=== PATIENT | female | born 1970 | race Caucasian/White ===

== ENCOUNTER 2025-01-19 18:14 | Emergency (ER) | payer MEDICAID ==
[~2025-01-19] VITALS: Ht 165.1 cm; Wt 100.0 kg
[2025-01-19 18:34] VITALS: BP 170/82; TEMP 36.8; O2SAT 98
[2025-01-19 18:36] VITALS: PULSE 87; RESP 18; O2SAT 98
[2025-01-19] MEDS ORDERED: TOPUD MT (21:00)
[2025-01-19] MEDS: ACETAMINOPHEN 500MG TABLET PO ONE (21:24)
== END 2025-01-19 21:32 | disposition home or self-care (01) ==
LOC: ER 18:14
DX: S92.352A Displaced fracture of fifth metatarsal bone, left foot, initial encounter for closed fracture (principal); Z88.8 Allergy status to other drugs, medicaments and biological substances; W01.10XA Fall on same level from slipping, tripping and stumbling with subsequent striking against unspecified object, initial encounter; Y93.89 Activity, other specified; Y92.89 Other specified places as the place of occurrence of the external cause; Y99.8 Other external cause status
CPT/HCPCS: 73630; 99283